=== PATIENT | male | born 1945 | race Caucasian/White ===

== ENCOUNTER 2019-06-08 13:22 | Outpatient (CLI) | payer OTHER | END 2019-06-08 23:59 | disposition home or self-care (01) | LOC: CFH 13:22 | PROVIDERS: ATTEND Internal Medicine Cardiovascular Disease | DX: I07.1 Rheumatic tricuspid insufficiency (principal); E78.5 Hyperlipidemia, unspecified | CPT/HCPCS: 93306 ==

== ENCOUNTER 2020-06-06 10:33 | Outpatient (CLI) | payer OTHER | END 2020-06-06 23:59 | disposition home or self-care (01) | LOC: CVU 10:33 | PROVIDERS: ATTEND Internal Medicine Cardiovascular Disease | DX: R06.00 Dyspnea, unspecified (principal); E78.49 Other hyperlipidemia | CPT/HCPCS: 93880 ==

== ENCOUNTER 2020-12-23 16:38 | Inpatient (IN) | payer OTHER ==
[~2020-12-23] VITALS: Ht 167.6 cm; Wt 100.6 kg
--- NOTE | 2020-12-23 17:00 | NUR ---
PATIENT BIB EMS FROM [facility] [place] WITH CHIEF C/O V-TACH. PATIENT WENT INTO ER BECAUSE HE FELT HIMSELF "THROWING PVC'S" AND FELT A "BURNING" IN THE MIDDLE OF HIS CHEST, UPON ARRIVAL TO ER PATIENT WAS FOUND TO BE IN V-TACH AND WAS CARDIOVERTED AFTER WHICH HE CONVERTED BACK TO SINUS RHYTHM PER EMS. PATIENT HAS HX OF V-TACH AND CARDIOVERSION, AND HISTORY OF MULTIPLE OR'S. UPON ARRIVAL PATIENT RUNNING AMIODARONE AT 33.3 mL/HR, PATIENT A&O, KEILA, PATIENT DENIES CHEST PAIN AT THIS TIME, EKG DONE AND CONNECTED TO ACCESS CONTROL OFFICER, CALL LIGHT WITHIN REACH. Addendum: 12/23/20 at 1705 by RACHEL AMIODARONE DRIP STOPPED, PATIENT IS STABLE AT THIS TIME, AWAITING ERMD ORDERS.
--- NOTE | 2020-12-23 17:51 | NUR ---
PATIENT RESTING IN GURNEY, KEILA, VSS, PATIENT DENIES CHEST PAIN, CALL LIGHT WITHIIN REACH. WAITING FOR MD ORDERS.
[2020-12-23] MEDS ORDERED: morphine SULFATE 10 MG/ML, 1ML IVPush PRN (18:30)
[2020-12-23] MEDS ORDERED: HYDROcodone/APAP 5/325 TABLET PO PRN (18:30)
[2020-12-23] MEDS ORDERED: ONDANSETRON 2MG/ML, 2ML IVPush PRN (18:30)
[2020-12-23] MEDS ORDERED: LABETALOL 5MG/ML, 20ML IVPush PRN (18:30)
--- NOTE | 2020-12-23 18:32 | NUR ---
PATIENT RESTING IN GURNEY, SON AT BEDSIDE, DINNER TRAY ORDERED, REINIERN, VSS, CALL LIGHT WITHIN REACH. WAITING FOR ROOM ASSIGMENT UPSTAIRS.
--- NOTE | 2020-12-23 18:42 | NUR ---
DINNER TRAY PROVIDED TO PATIENT.
[2020-12-23 18:52] LABS: BASOPHILS % (AUTO) 1 % (0-1); EOSINOPHILS % (AUTO) 2 % (1-7); LYMPHOCYTES % (AUTO) 15 % (22-44); MD NO; MEAN CORPUSCULAR HEMOGLOBIN 33.6 pg (27.5-34.5); MEAN CORPUSCULAR HGB CONC 33.8 g/dL (33.2-36.2); MEAN PLATELET VOLUME 7.7 fL (7.4-10.4); MONOCYTES % (AUTO) 9 % (2-9); NEUTROPHILS % (AUTO) 74 % (42-75); PLATELET COUNT 245 x10^3/uL (130-400); RED BLOOD COUNT 4.22 x10^6/uL (4.38-5.82); RED CELL DISTRIBUTION WIDTH 13.6 % (9.4-14.8)
[2020-12-23 19:00] LABS: ANION GAP 4 mmol/L (5-15); CALCIUM 9.5 mg/dL (8.5-10.1); CHLORIDE 109 mmol/L (98-107); CREATININE 1.06 mg/dL (0.7-1.3)
[2020-12-23 19:09] LABS: TROPONIN I 0.569 ng/mL (0.000-0.045)
[2020-12-23 21:02] VITALS: BP 113/66
[2020-12-23] MEDS ORDERED: ASPI81TA45 PO (22:30)
[2020-12-23] MEDS ORDERED: METO25TA91 PO (22:30)
[2020-12-23] MEDS ORDERED: ROSU20TA2 PO (22:30)
[2020-12-23] MEDS ORDERED: CLOP75TA52 PO (22:30)
[2020-12-23] MEDS ORDERED: EZET10TA70 PO (22:30)
[2020-12-23] MEDS ORDERED: TAMS-11 PO (22:30)
[2020-12-23] MEDS ORDERED: FENO145T32 PO (22:30)
[2020-12-23] MEDS ORDERED: OMEP20TA62 PO (22:30)
[2020-12-23] MEDS: ATORVASTATIN 80 MG TABLET PO SCH (23:25)
[2020-12-24] MEDS: MELATONIN 5 MG TABLET PO PRN (00:22)
[2020-12-24 00:23] VITALS: BP 111/69
[2020-12-24 01:18] LABS: TROPONIN I 0.524 ng/mL (0.000-0.045)
[2020-12-24] MEDS: TEMAZEPAM 15 MG CAPSULE PO PRN (02:14)
[2020-12-24 05:43] LABS: BASOPHILS % (AUTO) 1 % (0-1); EOSINOPHILS % (AUTO) 4 % (1-7); LYMPHOCYTES % (AUTO) 24 % (22-44); MEAN CORPUSCULAR HEMOGLOBIN 33.8 pg (27.5-34.5); MEAN CORPUSCULAR HGB CONC 34.2 g/dL (33.2-36.2); MEAN PLATELET VOLUME 7.8 fL (7.4-10.4); MONOCYTES % (AUTO) 9 % (2-9); NEUTROPHILS % (AUTO) 62 % (42-75); PLATELET COUNT 231 x10^3/uL (130-400); RED BLOOD COUNT 4.08 x10^6/uL (4.38-5.82); RED CELL DISTRIBUTION WIDTH 13.5 % (9.4-14.8)
[2020-12-24 05:52] LABS: ALBUMIN 3.5 g/dL (3.4-5.0); ANION GAP 6 mmol/L (5-15); CALCIUM 9.7 mg/dL (8.5-10.1); CHLORIDE 110 mmol/L (98-107)
[2020-12-24 05:56] LABS: ALANINE AMINOTRANSFERASE 21 U/L (12-78); ALKALINE PHOSPHATASE 39 U/L (45-117); BILIRUBIN,TOTAL 0.7 mg/dL (0.2-1.0); CREATININE 1.09 mg/dL (0.7-1.3)
[2020-12-24 06:09] LABS: MD NO
[2020-12-24] MEDS: METOPROLOL SUCCINATE 25 MG TAB.ER.24H PO SCH (06:40)
[2020-12-24] MEDS: ASPIRIN 81 MG TABLET EC PO SCH (06:40)
[2020-12-24 06:41] VITALS: BP 125/74
[2020-12-24 09:29] VITALS: BP 117/66
[2020-12-24] MEDS: FENOFIBRATE 145 MG TABLET PO SCH (10:31)
[2020-12-24] MEDS: EZETIMIBE 10 MG TABLET PO SCH (10:31)
[2020-12-24] MEDS: AMIODARONE 200 MG TABLET PO SCH ×2 (10:31→20:02)
[2020-12-24] MEDS: CLOPIDOGREL 75 MG TABLET PO SCH (10:31)
[2020-12-24 14:10] VITALS: BP 113/68
[2020-12-24 19:00] VITALS: BP 115/69
[2020-12-24] MEDS: ATORVASTATIN 80 MG TABLET PO SCH (20:02)
[2020-12-25 00:11] VITALS: BP 103/62
[2020-12-25 05:16] VITALS: BP 110/64
[2020-12-25] MEDS: ASPIRIN 81 MG TABLET EC PO SCH (05:19)
[2020-12-25] MEDS: METOPROLOL SUCCINATE 25 MG TAB.ER.24H PO SCH (05:19)
[2020-12-25 05:58] LABS: TROPONIN I 0.091 ng/mL (0.000-0.045)
[2020-12-25 07:21] VITALS: BP 90/51
[2020-12-25 07:24] VITALS: BP 104/68
[2020-12-25] MEDS: EZETIMIBE 10 MG TABLET PO SCH (09:16)
[2020-12-25] MEDS: CLOPIDOGREL 75 MG TABLET PO SCH (09:16)
[2020-12-25] MEDS: FENOFIBRATE 145 MG TABLET PO SCH (09:16)
[2020-12-25] MEDS: AMIODARONE 200 MG TABLET PO SCH ×2 (09:16→19:45)
[2020-12-25 13:39] VITALS: BP 118/62
[2020-12-25 19:42] VITALS: BP 115/71
[2020-12-25] MEDS: ATORVASTATIN 80 MG TABLET PO SCH (19:45)
[2020-12-25] MEDS: TEMAZEPAM 15 MG CAPSULE PO PRN (22:16)
[2020-12-26 00:34] VITALS: BP 116/72
[2020-12-26 05:48] VITALS: BP 116/69
[2020-12-26] MEDS: ASPIRIN 81 MG TABLET EC PO SCH (05:51)
[2020-12-26] MEDS: METOPROLOL SUCCINATE 25 MG TAB.ER.24H PO SCH (05:52)
[2020-12-26 07:48] VITALS: BP 114/71
[2020-12-26] MEDS: AMIODARONE 200 MG TABLET PO SCH ×2 (10:09→20:06)
[2020-12-26] MEDS: EZETIMIBE 10 MG TABLET PO SCH (10:09)
[2020-12-26] MEDS: FENOFIBRATE 145 MG TABLET PO SCH (10:09)
[2020-12-26] MEDS: CLOPIDOGREL 75 MG TABLET PO SCH (10:09)
[2020-12-26] MEDS: SODIUM CHLORIDE 0.9% 1,000 ML IV SCH ×2 (11:00→23:36)
[2020-12-26] MEDS ORDERED: SODIUM CHLORIDE 0.9% 1,000 ML IV SCH ×2 (11:00→16:30)
[2020-12-26] MEDS ORDERED: CEFAZOLIN PMX 1GM/50ML 50 ML IVPB ONE (11:00)
[2020-12-26 13:40] VITALS: BP 123/71
[2020-12-26] MEDS ORDERED: TICAGRELOR 90 MG TABLET ONE (15:23)
[2020-12-26] MEDS ORDERED: VERAPAMIL 2.5 MG/ML, 2ML ONE (15:23)
[2020-12-26] MEDS ORDERED: FENTANYL PF 100 MCG/2ML ONE (15:23)
[2020-12-26] MEDS ORDERED: LIDOCAINE-MPF 1%, 5ML ONE (15:23)
[2020-12-26] MEDS ORDERED: MIDAZOLAM 1 MG/ML, 5ML ONE (15:23)
[2020-12-26] MEDS ORDERED: HEPARIN 1,000 UNITS/ML, 10ML ONE (15:23)
[2020-12-26] MEDS ORDERED: BIVALIRUDIN 250 MG ONE (15:23)
[2020-12-26] MEDS: ATORVASTATIN 80 MG TABLET PO SCH (20:06)
[2020-12-26 20:07] VITALS: BP 147/77
[2020-12-26] MEDS: TEMAZEPAM 15 MG CAPSULE PO PRN (22:38)
[2020-12-27 00:36] VITALS: BP_SYST 110; BP_SYST 111; BP_DIAS 70
[2020-12-27 07:40] VITALS: BP 117/71
[2020-12-27] MEDS: FENOFIBRATE 145 MG TABLET PO SCH (08:31)
[2020-12-27] MEDS: CLOPIDOGREL 75 MG TABLET PO SCH (08:31)
[2020-12-27] MEDS: ASPIRIN 81 MG TABLET EC PO SCH (08:31)
[2020-12-27] MEDS: EZETIMIBE 10 MG TABLET PO SCH (08:31)
[2020-12-27] MEDS: METOPROLOL SUCCINATE 25 MG TAB.ER.24H PO SCH (08:32)
[2020-12-27] MEDS: AMIODARONE 200 MG TABLET PO SCH ×2 (08:32→21:12)
[2020-12-27] MEDS ORDERED: CEFAZOLIN PMX 1GM/50ML 50 ML ONE (08:58)
[2020-12-27] MEDS ORDERED: FENTANYL PF 250 MCG/5ML ONE (08:58)
[2020-12-27] MEDS ORDERED: CEFAZOLIN 1,000 MG ONE (08:58)
[2020-12-27] MEDS ORDERED: MIDAZOLAM 1 MG/ML, 5ML ONE (08:58)
[2020-12-27] MEDS ORDERED: LIDOCAINE 2%, 20ML ONE ×2 (08:58→09:35)
[2020-12-27] MEDS ORDERED: HOLD MEDICATION MC PRN (10:30)
[2020-12-27] MEDS: ACETAMINOPHEN 325 MG TABLET PO PRN ×2 (13:04→19:03)
[2020-12-27 13:41] VITALS: BP 122/75
[2020-12-27] MEDS ORDERED: CEFAZOLIN PMX 1GM/50ML 50 ML IVPB SCH (18:00)
[2020-12-27 20:00] VITALS: BP 121/75
[2020-12-27] MEDS: ATORVASTATIN 80 MG TABLET PO SCH (21:12)
[2020-12-27] MEDS: MELATONIN 5 MG TABLET PO PRN (21:13)
[2020-12-27] MEDS: SODIUM CHLORIDE FLUSH 10ML SYR IVF SCH (21:14)
[2020-12-28 02:38] VITALS: BP 114/68
[2020-12-28] MEDS ORDERED: OMEPRAZOLE 20 MG CAPSULE.DR PO SCH (06:00)
[2020-12-28] MEDS: ASPIRIN 81 MG TABLET EC PO SCH (06:13)
[2020-12-28] MEDS: METOPROLOL SUCCINATE 25 MG TAB.ER.24H PO SCH (06:13)
[2020-12-28] MEDS: ACETAMINOPHEN 325 MG TABLET PO PRN (06:14)
[2020-12-28 07:41] VITALS: BP 119/66
[2020-12-28] MEDS ORDERED: TAMSULOSIN 0.4 MG CAP.ER.24H PO SCH (09:00)
[2020-12-28] MEDS: AMIODARONE 200 MG TABLET PO SCH (09:28)
[2020-12-28] MEDS: EZETIMIBE 10 MG TABLET PO SCH (09:28)
[2020-12-28] MEDS: FENOFIBRATE 145 MG TABLET PO SCH (09:28)
[2020-12-28] MEDS: CLOPIDOGREL 75 MG TABLET PO SCH (09:29)
[2020-12-28] MEDS: SODIUM CHLORIDE FLUSH 10ML SYR IVF SCH (09:31)
[2020-12-28] MEDS ORDERED: CEFAZOLIN PMX 1GM/50ML 50 ML IVPB SCH (10:00)
[2020-12-28] MEDS ORDERED: ACET325T26 PO (11:02)
[2020-12-28] MEDS ORDERED: CEPH-376 PO (11:02)
[2020-12-28] MEDS ORDERED: AMIO200T42 PO (11:02)
== END 2020-12-28 12:10 | disposition home or self-care (01) | DRG 265 ==
LOC: ED 17:42 → EDIP 18:18 → 5SO 20:46 → DCLOUNGE 12-28 12:00
PROVIDERS: ADMIT Internal Medicine; ATTEND Internal Medicine
PROC: 4A023N7 Measurement of Cardiac Sampling and Pressure, Left Heart, Percutaneous Approach (ICD-10-PCS; principal; 2020-12-26)
PROC: B2111ZZ Fluoroscopy of Multiple Coronary Arteries using Low Osmolar Contrast (ICD-10-PCS; 2020-12-26)
PROC: B2151ZZ Fluoroscopy of Left Heart using Low Osmolar Contrast (ICD-10-PCS; 2020-12-26)
PROC: 0JH60FZ Insertion of Subcutaneous Defibrillator Lead into Chest Subcutaneous Tissue and Fascia, Open Approach (ICD-10-PCS; 2020-12-27)
PROC: 4A0234Z Measurement of Cardiac Electrical Activity, Percutaneous Approach (ICD-10-PCS; 2020-12-27)
DX: I49.01 Ventricular fibrillation (principal); I21.A1 Myocardial infarction type 2; I50.43 Acute on chronic combined systolic (congestive) and diastolic (congestive) heart failure; I11.0 Hypertensive heart disease with heart failure; I47.2 Ventricular tachycardia; E78.5 Hyperlipidemia, unspecified; I25.10 Atherosclerotic heart disease of native coronary artery without angina pectoris; Z96.649 Presence of unspecified artificial hip joint; G47.33 Obstructive sleep apnea (adult) (pediatric); K21.9 Gastro-esophageal reflux disease without esophagitis; M19.90 Unspecified osteoarthritis, unspecified site; I25.5 Ischemic cardiomyopathy; I25.82 Chronic total occlusion of coronary artery; I49.3 Ventricular premature depolarization; I25.2 Old myocardial infarction; Z79.02 Long term (current) use of antithrombotics/antiplatelets; Z79.82 Long term (current) use of aspirin; Z79.899 Other long term (current) drug therapy; Z87.891 Personal history of nicotine dependence; Z95.5 Presence of coronary angioplasty implant and graft
CPT/HCPCS: 33249; 36415; 93458; 93571; J3490; 71045; 80048; 80053; 83735; 84100; 84484; 85025; 93005; 99156; 99157; C1769; C1892; C1894; C1895; G0378; J0583; J0690; J1644; J2250; J3010; C1722; J7030; Q9967